=== PATIENT | male | born 2000 | race Hispanic/Latino ===

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

== ENCOUNTER 2025-08-31 14:31 | Emergency (ER) | payer MEDICAID, SELFPAY ==
[2025-08-31 14:41] VITALS: BP 159/105; PULSE 55; RESP 20; TEMP 36.3; O2SAT 100
[2025-08-31] MEDS: LIDOCAINE 2% VISC SOLN 15 ML UDC 10 ML PO (15:04)
[2025-08-31] MEDS: MAG HYDROX/AL HYDROX/SIMETH 30 ML UDC PO (15:07)
--- NOTE | 2025-08-31 15:43 | ED.ABDPAIN ---
HPI - Abdominal Pain General Chief Complaint: Abdominal Pain Stated Complaint: ABD PAIN Time Seen by Provider: 08/31/25 15:20 Source: patient and RN notes reviewed Mode of arrival: ambulatory Limitations: no limitations History of Present Illness HPI narrative: 25-year-old male patient presents Express Care complaining of epigastric pain that started approximately 50 minutes ago. Patient said it started after he took 150 mg of zinc, he says he is only supposed to take 50 mg that accidentally took 3 tablets. Shortly after he took them he developed epigastric pain, nausea. Patient denies any vomiting, diarrhea, fevers, eczema chills, any other symptoms. Patient reports the pain is sharp and stabbing. Patient denies any significant past problems, denies any GI problems. Related Data Home Medications ?Medication ?Instructions ?Recorded ?Confirmed ?Last Taken ?Type creatine monohydrate ea PO 08/31/25 Unknown History folic acid .ROUTE 08/31/25 Unknown History zinc 100 mg tablet 100 mg PO DAILY 08/31/25 Unknown History Allergies Allergy/AdvReac Type Severity Reaction Status Date / Time No Known Allergies Allergy Verified 08/31/25 14:47 Review of Systems Review of Systems: CONSTITUTIONAL: Denies fever, chills, or sweats. EYES: Denies visual changes, redness, or discharge. ENT: Denies rhinorrhea, congestion, sore throat, or otalgia. CARDIOVASCULAR: Denies chest pain, palpitations, or edema. RESPIRATORY: Denies cough or dyspnea. GASTROINTESTINAL: Positive for abdominal pain and nausea. Negative for vomiting, or diarrhea. GENITOURINARY: Denies dysuria or hematuria. SKIN: Denies rash or itching. MUSCULOSKELETAL: Denies back pain, joint pain, or myalgia. NEUROLOGIC: Denies headache, numbness, or weakness. PSYCHIATRIC: Denies anxiety or depression. All other systems reviewed are negative, except as documented in HPI. PMFSH Comments At the time of my signature, I reviewed and agree with the nursing past medical, surgical, social, and family history. There is no relevant family history pertinent to the patient complaint. Exam Narrative: GENERAL: This is a well-nourished, well-developed adult, in no apparent distress. They are non ill-appearing, nontoxic appearing. HEAD: normocephalic, atraumatic. EYES: Sclera clear/white. Conjunctiva normal. Vision is grossly intact. Extraocular movements intact EARS: External ears normal, Hearing grossly intact. NOSE: External nose normal THROAT: Mucous membranes moist, NECK: Neck supple, CARDIOVASCULAR: Regular rate and rhythm without murmurs, gallops, or rubs. RESPIRATORY: Clear to auscultation. Breath sounds equal bilaterally. No wheezes, rales, or rhonchi. GASTROINTESTINAL: Abdomen soft, non-tender, nondistended. Bowel sounds are active. No hepato-splenomegaly, or palpable masses. No guarding or rigidity. No rebound tenderness. SKIN: warm, Dry, intact with no suspicious lesions or rash, good texture and turgor. NEURO: awake, alert, and oriented to person, place and time. There were no obvious focal neurologic abnormalities. EXTREMITIES: No joint tenderness, effusion, or edema noted. BACK: Nontender without deformity. Course Course Level of Care: Express Care Visit Vital Signs Vital signs: Vital Signs Temperature 97.4 F L 08/31/25 14:41 Pulse Rate 55 L 08/31/25 14:41 Respiratory Rate 20 08/31/25 14:41 Blood Pressure 159/105 H 08/31/25 14:41 Pulse Oximetry 100 08/31/25 14:41 Oxygen Delivery Room Air 08/31/25 14:41 Temperature 97.4 F L 08/31/25 14:41 Pulse Rate 55 L 08/31/25 14:41 Respiratory Rate 20 08/31/25 14:41 Blood Pressure 159/105 H 08/31/25 14:41 Pulse Oximetry 100 08/31/25 14:41 Oxygen Delivery Room Air 08/31/25 14:41 [facility] Narrative Medical decision making narrative: Patient likely reaction to taking sink going to be stomach. No peritoneal findings on exam, no abdominal tenderness. Patient given GI cocktail with improvement in symptoms. She reports feeling significantly better, no longer feels nauseous. Patient reports pain is at a minimum. Discussed supportive care. Advised patient to go home and eat something. Discussed physical exam findings. Advised supportive measures and signs/symptoms to go to the ER. Pt is appropriate for outpt treatment and f/u. Differential Diagnosis Differential Diagnosis: Gastroenteritis, side effect of medication, pancreatitis, gastritis, acid reflux Critical Care Time Critical Care Time Critical Care Time: No Discharge Plan Discharge Clinical Impression: Abdominal pain, epigastric Patient Disposition: Home Condition: Stable Instructions: Abdominal Pain (ED) Additional Instructions: It is common for zinc to cause nausea and abdominal pain taken on empty stomach or in high doses. Please take the zinc as directed. Please take it with food. Follow-up with PCP in 3-5 days. If you developed worsening abdominal pain, vomiting, fevers, or any serious concerns please go to the ER immediately. Patient Language: Slovak Prescriptions: No Action zinc 100 mg tablet 100 mg PO DAILY folic acid .ROUTE creatine monohydrate Powder PO Follow-up/Referrals: [facility] [Primary Care Provider, Unknown] Time of Disposition: 15:33
== END 2025-08-31 15:56 | disposition home or self-care (01) ==
DX: R10.13 Epigastric pain (principal)
CPT/HCPCS: 99203; A9270; G0463